=== PATIENT | female | born 1950 | race Two or more races ===

== ENCOUNTER → 2019-10-10 | Outpatient (CLI) | payer MEDICARE, MEDICAID ==
[~2019-10-10] MED LIST: IBUPROFEN600 MG ORAL; LIDODERM700 M1 TOPIC; NORCO 5-325 TA1 EAC1 ORAL; ROBAXIN-750750 MG PO
--- NOTE | 2019-10-10 13:59 | Diagnostic Imaging Report ---
Indication: Chronic right wrist pain Technique: Noncontrast spiral acquisitions obtained through the right wrist. Multiplanar reconstructions were generated. Total dose length product 55 mGycm. CTDIvol(s) 3 mGy. Radiation dose was minimized using automated exposure control Comparison: none Findings: No acute fractures. No dislocations. The joint spaces are preserved. No definite joint effusion. No significant soft tissue abnormality Impression: Negative for acute bony trauma Note that CT is limited in evaluation of possible internal derangements. If there is high clinical suspicion for such, MRI should be considered if not contraindicated The CT scanner at [facility] is accredited by the [employer] and the scans are performed using protocols designed to limit radiation exposure to as low as reasonably achievable to attain images of sufficient resolution adequate for diagnostic evaluation.
== END | disposition home or self-care (01) ==
LOC: RAD 09:39
DX: M25.531 Pain in right wrist (principal); G89.29 Other chronic pain

== ENCOUNTER 2019-10-20 18:04 | Emergency (ER) | payer MEDICARE, MEDICAID ==
[~2019-10-20] VITALS: Ht 157.5 cm; Wt 90.7 kg
--- NOTE | 2019-10-20 18:24 | Emergency Room Report ---
History of Present Illness General Chief Complaint: Lower Extremity Injury Present Illness HPI 68-year-old female with history of hyperlipidemia currently taking statins and denies any other past medical history here complaining of 1 week of left-sided leg pain mainly concentrated in the left knee and worsening pain today. Reports that the pain is 10 out of 10, feeling heavy and that time cannot bear pressure. Reports that the pain is worse when she is sitting for prolonged time or driving. Reports that she took 3 Tylenol today however does not feel any improvement. Denies chest pain, shortness of breath, headache and dizziness. Denies tingling and numbness. Denies tobacco smoke, marijuana use, alcohol intake. Denies any cardiac history. Denies unilateral weakness, patient is neurovascularly intact. No calf tenderness noted. Allergies: Coded Allergies: No Known Allergies (Unverified , 04/25/19) COVID-19 Screening Contact w/high risk pt: No Recent Travel to affected area: No Experienced COVID-19 symptoms?: No COVID-19 Testing performed NETWORK SECURITY ENGINEER: No Patient History Past Medical History: see triage record Past Surgical History: none Pertinent Family History: none Now: No Immunizations: UTD Reviewed Nursing Documentation: PMH: Agreed; PSxH: Agreed Nursing Documentation-PMH Hx Cardiac Problems: No - HYPERLIPIDEMIA Hx Hypertension: No Hx Pacemaker: No Hx Asthma: No Hx COPD: No Hx Diabetes: No Hx Cancer: No Hx Gastrointestinal Problems: No Hx Dialysis: No Hx Neurological Problems: No Hx Cerebrovascular Accident: No Hx Seizures: No Review of Systems All Other Systems: negative except mentioned in HPI Physical Exam Vital Signs Date Time Temp Pulse Resp B/P (MAP) Pulse Ox O2 Delivery O2 Flow Rate FiO2 10/20/19 18:13 98.2 72 20 140/64 (89) 97 Room Air Sp02 EP Interpretation: reviewed, normal General Appearance: no apparent distress, alert, GCS 15, non-toxic Head: normocephalic, atraumatic Eyes: bilateral eye normal inspection, bilateral eye PERRL ENT: hearing grossly normal, normal pharynx, no angioedema, normal voice Neck: full range of motion, supple, thyroid normal, no meningismus, no bony tend, supple/symm/no masses Respiratory: chest non-tender, lungs clear, normal breath sounds, no rhonchi, no wheezing, speaking full sentences Cardiovascular #1: regular rate, rhythm, no edema, no murmur Cardiovascular #2: 2+ dorsalis pedis (R), 2+ dorsalis pedis (L) Gastrointestinal: non tender, soft Genitourinary: no CVA tenderness Musculoskeletal: back normal, digits/nails normal, no calf tenderness, pelvis stable, non-tender Neurologic: alert, motor strength/tone normal, oriented x3, sensory intact, responsive, speech normal Psychiatric: judgement/insight normal, memory normal, mood/affect normal, no suicidal/homicidal ideation Skin: no rash Lymphatic: no adenopathy Medical Decision Making PA Attestation All diagnoses and treatment plans were reviewed and discussed with my supervising physician Dr. Greenberg Diagnostic Impression: Primary Impression: Arthritis of knee ER Course 68-year-old female with history of hyperlipidemia currently taking statins and denies any other past medical history here complaining of 1 week of left-sided leg pain mainly concentrated in the left knee and worsening pain today. Reports that the pain is 10 out of 10, feeling heavy and that time cannot bear pressure. Reports that the pain is worse when she is sitting for prolonged time or driving. Reports that she took 3 Tylenol today however does not feel any improvement. Denies chest pain, shortness of breath, headache and dizziness. Denies tingling and numbness. Denies tobacco smoke, marijuana use, alcohol intake. Denies any cardiac history. Denies unilateral weakness, patient is neurovascularly intact. No calf tenderness noted. Ddx considered but are not limited to : Cellulitis, DVT, superficial infection, abscess Vital signs: are WNL, pt. is afebrile H&PE are most consistent with:knee arthritis ORDERS: CBC, CMP, UA, BNP, troponin, d-dimer, venous duplex ultrasound, PT and PTT, knee x-ray, motrin, voltaren gel ED INTERVENTIONS: Toradol DISCHARGE: At this time pt. is stable for d/c to home. Will provide printed patient care instructions, and any necessary prescriptions. Care plan and follow up instructions have been discussed with the patient prior to discharge. Take medication as directed, follow-up with your primary care provider, if worsening symptoms return to the emergency room Chest X-Ray Diagnostic Results Chest X-Ray Diagnostic Results : Chest X-Ray Ordered: Yes # of Views/Limited/Complete: 1 View Indication: Other EP Interpretation: Yes SINDY Xray: Interpretation reviewed, by supervising MD, and agrees with findings. Interpretation: no consolidation, no effusion, no pneumothorax, no acute cardiopulmonary disease Impression: No acute disease Electronically Signed by: Ghassan Estevez PA-C Other X-Ray Diagnostic Results Other X-Ray Diagnostic Results : X-Ray ordered: Left knee # of Views/Limited Vs Complete: 3 View Indication: Pain EP Interpretation: Yes PA Xray: Interpretation reviewed, by supervising MD, and agrees with findings. Interpretation: no dislocation, no soft tissue swelling, no fractures Impression: No acute disease Electronically Signed by: Ghassan Estevez PA-C CT/MRI/US Diagnostic Results CT/MRI/US Diagnostic Results : Imaging Test Ordered: Venous duplex ultrasound left lower extremity Impression Negative DVT Last Vital Signs Date Time Temp Pulse Resp B/P (MAP) Pulse Ox O2 Delivery O2 Flow Rate FiO2 10/20/19 18:13 98.2 72 20 140/64 (89) 97 Room Air Disposition: HOME, SELF-CARE Condition: Stable Patient Instructions: Arthritis, [id number] Additional Instructions: Take medication as directed, follow-up with your primary care provider, if worsening symptoms return to the emergency room also this could be a vascular issue to be referred to your primary doctor for further evaluation. Ghassan Rowland Oct 20, 2019 18:24
[2019-10-20] MEDS ORDERED: Ketorolac 30mg Inj IV ONE (18:30)
[2019-10-20 18:50] LABS: BASOPHILS % (AUTO) 0.8 % (0.0-2.0); EOSINOPHILS % (AUTO) 1.2 % (0.0-3.0); HEMATOCRIT 39.8 % (37.0-47.0); HEMOGLOBIN 13.7 G/DL (12.0-16.0); LYMPHOCYTES % (AUTO) 25.4 % (20.0-45.0); MEAN CORPUSCULAR VOLUME 96 FL (80-99); NEUTROPHILS % (AUTO) 63.7 % (45.0-75.0); PLATELET COUNT 270 K/UL (150-450); RED BLOOD COUNT 4.13 M/UL (4.20-5.40); WHITE BLOOD COUNT 9.4 K/UL (4.8-10.8)
[2019-10-20 18:55] LABS: ANION GAP 9 mmol/L (5-15); BLOOD UREA NITROGEN 18 mg/dL (7-18); CALCIUM 9.3 MG/DL (8.5-10.1); CARBON DIOXIDE 26 MMOL/L (21-32); CHLORIDE 105 MMOL/L (98-107); CREATININE 1.1 MG/DL (0.55-1.30); POTASSIUM 4.2 MMOL/L (3.5-5.1); SODIUM 140 MMOL/L (136-145)
[2019-10-20 19:01] LABS: INR 0.9 (0.9-1.1)
[2019-10-20 19:06] LABS: ALANINE AMINOTRANSFERASE 35 U/L (12-78); ALBUMIN 3.7 G/DL (3.4-5.0); ALBUMIN/GLOBULIN RATIO 1.1 (1.0-2.7); ALKALINE PHOSPHATASE 79 U/L (46-116); ASPARTATE AMINO TRANSFERASE 21 U/L (15-37)
[2019-10-20 19:10] VITALS: BP 132/56
[2019-10-20] MEDS ORDERED: IBUPROFEN600 M1 ORAL (19:15)
[2019-10-20] MEDS ORDERED: VOLTAREN100 G1 TP (19:15)
[2019-10-20] MEDS ORDERED: GABAPENTIN100 MG ORAL (19:24)
[2019-10-20 19:35] VITALS: BP 129/66
--- NOTE | 2019-10-21 09:04 | Diagnostic Imaging Report ---
Indication: Chest pain Technique: One view of the chest Comparison: none Findings: Lungs and pleural spaces are clear. The heart size is normal. Impression: Negative
--- NOTE | 2019-10-21 09:04 | Diagnostic Imaging Report ---
Indication: Left knee pain Technique: 3 views of the left knee Comparison: None Findings: No suprapatellar effusion. No acute fractures. There are traction osteophytes at the superior pole of the patella. There is medial compartment degenerative joint space narrowing and an osteophyte. No dislocations. Impression: Degenerative changes. No acute bony trauma
--- NOTE | 2019-10-21 09:06 | Diagnostic Imaging Report ---
Indication: Left leg pain Technique: Grayscale and duplex images of the left lower extremity veins Comparison: None Findings: On the left, grayscale and duplex images demonstrate no evidence of intraluminal thrombus. Normal phasic Doppler waveforms, demonstrating normal augmentation response and no evidence of valvular insufficiency. Greater saphenous vein(s) and tibial veins are patent. Normal compressibility. Impression: Negative for evidence of lower extremity deep venous thrombosis on the left
== END 2019-10-20 19:35 | disposition home or self-care (01) ==
LOC: EMR 18:30
DX: M17.12 Unilateral primary osteoarthritis, left knee (principal); E78.5 Hyperlipidemia, unspecified; R07.9 Chest pain, unspecified; M79.605 Pain in left leg
CPT/HCPCS: 36415; 71045; 73562; 80053; 83880; 84484; 85025; 85379; 85610; 85730; 93971; 96374; 99284; J1885

== ENCOUNTER 2019-10-27 18:06 | Emergency (ER) | payer MEDICARE, MEDICAID ==
[~2019-10-27] VITALS: Ht 157.5 cm; Wt 90.7 kg
[~2019-10-27 18:06] MED LIST changes: +GABAPENTIN100 MG ORAL; +IBUPROFEN600 M1 ORAL; +VOLTAREN100 G1 TP
[2019-10-27] MEDS ORDERED: IBUPROFEN600 M1 ORAL (18:29)
[2019-10-27] MEDS ORDERED: LIDODERM700 M1 TOPIC (18:29)
--- NOTE | 2019-10-27 18:29 | Emergency Room Report ---
History of Present Illness General Chief Complaint: Lower Extremity Injury Source: Patient Present Illness HPI 68-year-old female presents with recurrent left knee pain that has been continuous since 2 weeks ago patient with a negative x-ray patient was diagnosed with arthritis, patient endorses achy pain aggravated with movement alleviated throughout severity is moderate, intermittent, patient denies any trauma to the region patient states that she continues to have the same pain patient states she has not had a chance to follow-up with hospital product specialist nor her primary care doctor patient presents for evaluation Allergies: Coded Allergies: No Known Allergies (Unverified , 04/25/19) COVID-19 Screening Contact w/high risk pt: No Recent Travel to affected area: No Experienced COVID-19 symptoms?: No COVID-19 Testing performed MANAGER BEHAVIOR: No Patient History Past Medical History: see triage record Now: No Reviewed Nursing Documentation: PMH: Agreed; PSxH: Agreed Nursing Documentation-PMH Past Medical History: No History, Except For Hx Cardiac Problems: No - HYPERLIPIDEMIA Hx Hypertension: No Hx Pacemaker: No Hx Asthma: No Hx COPD: No Hx Diabetes: No Hx Cancer: No Hx Gastrointestinal Problems: No Hx Dialysis: No Hx Neurological Problems: No Hx Cerebrovascular Accident: No Hx Seizures: No Review of Systems All Other Systems: negative except mentioned in HPI Physical Exam Vital Signs Date Time Temp Pulse Resp B/P (MAP) Pulse Ox O2 Delivery O2 Flow Rate FiO2 10/27/19 18:12 98.2 69 20 99/65 (76) 96 Room Air General Appearance: well appearing, no apparent distress Head: normocephalic, atraumatic ENT: hearing grossly normal, normal voice Neck: full range of motion, supple Respiratory: no respiratory distress, speaking full sentences Musculoskeletal: gait/station normal, other - Left knee: 5 out of 5 knee flexion extension, gait intact, anterior posterior drawer negative, valgus varus negative, tenderness to palpation anterior aspect of the knee Neurologic: alert, normal gait Psychiatric: mood/affect normal Skin: no rash Medical Decision Making Diagnostic Impression: Primary Impression: Arthritis ER Course 68-year-old female presents with recurrent arthritis of the left knee, patient was counseled to lose weight as well as follow-up with a PCP doubt septic joint doubt trauma. No indications for repeat XR. Previous XR shows arthritis of the knee. Disposition home with return precautions patient given a shot of Toradol, Decadron, Tylenol, and lidocaine patch follow-up with PCP Last Vital Signs Date Time Temp Pulse Resp B/P (MAP) Pulse Ox O2 Delivery O2 Flow Rate FiO2 10/27/19 18:12 98.2 69 20 99/65 (76) 96 Room Air Disposition: HOME, SELF-CARE Condition: Stable Scripts Lidocaine Patch* (Lidoderm Patch*) 1 Each Adh..patch 1 PATCH TOPIC DAILY, #7 PATCH 0 Refills Patch(es) may remain in place for up to 12 hours in any 24-hour period. Prov: Kaushik Herman MD 10/27/19 Ibuprofen* (MOTRIN*) 600 Mg Tablet 600 MG ORAL Q6H PRN for For Pain, #30 TAB 0 Refills Prov: Kaushik Herman MD 10/27/19 Referrals: Gideon Martinez MD (PCP) [facility] Patient Instructions: Arthritis, [id number] Additional Instructions: The patient was provided with discharge instructions, notified to follow-up with a primary care doctor and or specialist in the next 24-48 hours, and to return to the ED if they have worsening of their symptoms. Please note that this report is being documented using [employer] technology. This can lead to erroneous entry secondary to incorrect interpretation by the dictating instrument. Kaushik Herman MD Oct 27, 2019 18:29
[2019-10-27] MEDS ORDERED: Ketorolac 30mg Inj IM ONE (18:30)
[2019-10-27] MEDS ORDERED: Acetaminophen 500mg (ES) tab ORAL ONE (18:30)
[2019-10-27] MEDS ORDERED: Methocarbamol 500mg tab ORAL ONE (18:30)
[2019-10-27 18:39] VITALS: BP 115/74
== END 2019-10-27 18:38 | disposition home or self-care (01) ==
LOC: EMR 18:22
DX: M17.12 Unilateral primary osteoarthritis, left knee (principal); E78.5 Hyperlipidemia, unspecified
CPT/HCPCS: 96372; 99283; J1100; J1885

== ENCOUNTER 2019-10-30 13:41 | Inpatient (IN) | payer MEDICARE, MEDICAID ==
[~2019-10-30] VITALS: Ht 160 cm; Wt 80.7 kg
[2019-10-30] MEDS ORDERED: LORazepam 1mg tab ORAL PRN (15:15)
--- NOTE | 2019-10-30 15:15 | NUR ---
NURSE NOTES: PT IS DIRECT ADMIT FROM HOME. PT WAS ORIENTED TO ROOM. SISTER BELA AT BEDSIDE. PER PT, SHE WOULD LIKE HER SISTER TO TRANSLATE. PT IS [place] SPEAKING ONLY. PT STATES PAIN 10/10 OF LEFT KNEE. AXOX4, DENIES SOB, FEVER, OR CONTACT WITH PERSONS POSITIVE FOR COVID. BELONGINGS CHECKED AT BEDSIDE. SISTER BELA WILL TAKE WALLET THAT CONTAINS CREDIT CARD, ID, AND SOCIAL SECURITY CARD HOME. ALSO TOOK RING HOME. IV ACCESS INSERTED ON LEFT FA G22. RN SPOKE TO DR DODD AND RECEIVED ADMISSION ORDERS. PT'S SKIN IS INTACT. PT EDUCATED ON FALL PRECAUTIONS AND HOW TO USE CALL LIGHT FOR ASSISTANCE. PT VERBALIZED UNDERSTANDING. WILL CONTINUE TO MONITOR.
[2019-10-30] MEDS: HYDROcodone/Acetamin 5/325 tab ORAL PRN (15:53)
--- NOTE | 2019-10-30 16:00 | NUR ---
NURSE NOTES: PT BACK ON UNIT FROM MRS LEFT KNEE AND LEFT HIP. PT IS IN BED, EATING DINNER. PT STATES PAIN IS MINIMAL WHEN LYING IN BED/NOT MOVING. IN NO APPARENT DISTRESS AT THIS TIME. BED IN LOWEST POSITION WITH BEDSIDE RAILS X2 RAISED. CALL LIGHT WITHIN REACH. WILL CONTINUE TO MONITOR.
--- NOTE | 2019-10-30 17:53 | Diagnostic Imaging Report ---
EXAM: MR Left Lower Extremity Without Intravenous Contrast, Knee CLINICAL HISTORY: PAIN TECHNIQUE: Multiplanar magnetic resonance images of the left knee without intravenous contrast. COMPARISON: 10/20/2019 x-rays. FINDINGS: BONES/JOINTS/CARTILAGE: Patellofemoral compartment: Small knee joint effusion. Femorotibial compartments: Medial tibial plateau mild edema which may be chronic, degenerative, versus stress fracture. Moderate tricompartmental degenerative changes, most significant in the medial compartment. Full-thickness chondromalacia of the medial femoral condyle. Extensor mechanism: Unremarkable. Medial meniscus: Degeneration versus nondisplaced complex tear of the body of the medial meniscus. Lateral meniscus: Unremarkable. No tear. Medial capsule/supporting structures: Unremarkable. Normal medial collateral ligament. Lateral capsule/supporting structures: Unremarkable. Normal lateral collateral ligament. Anterior cruciate ligament: Unremarkable. Posterior cruciate ligament: Unremarkable. Musculature: Unremarkable. Soft tissues: Anterior subcutaneous edema. IMPRESSION: 1. Medial tibial plateau mild edema which may be chronic, degenerative, versus stress fracture. 2. Moderate tricompartmental degenerative changes, most significant in the medial compartment. 3. Degeneration versus nondisplaced complex tear of the body of the medial meniscus. 4. Small knee joint effusion.
--- NOTE | 2019-10-30 18:14 | NUR ---
HAND-OFF: Report given to LOR ENRIQUEZ RN.
--- NOTE | 2019-10-30 18:36 | Diagnostic Imaging Report ---
EXAM: MR Left Lower Extremity Without Intravenous Contrast, Hip CLINICAL HISTORY: PAIN TECHNIQUE: Multiplanar magnetic resonance images of the left hip without intravenous contrast. COMPARISON: No relevant prior studies available. FINDINGS: TENDONS: Flexors: Unremarkable. Extensors/Hamstring: Unremarkable. Abductors: Unremarkable. Adductors: Unremarkable. Rotators: Unremarkable. Muscles: Unremarkable. Fluid: Unremarkable. No joint effusion. Labrum: Unremarkable. Cartilage: Unremarkable. Bones/joints: Unremarkable. No acute fracture. No dislocation. IMPRESSION: No acute fracture.
[2019-10-30 19:28] LABS: EOSINOPHILS % (AUTO) 3.4 % (0.0-3.0); HEMATOCRIT 37.8 % (37.0-47.0); LYMPHOCYTES % (AUTO) 36.9 % (20.0-45.0); MEAN CORPUSCULAR VOLUME 98 FL (80-99); MONOCYTES % (AUTO) 7.7 % (1.0-10.0); PLATELET COUNT 266 K/UL (150-450); RED BLOOD COUNT 3.87 M/UL (4.20-5.40); RED CELL DISTRIBUTION WIDTH 12.1 % (11.6-14.8); WHITE BLOOD COUNT 10.3 K/UL (4.8-10.8)
--- NOTE | 2019-10-30 19:33 | NUR ---
NURSE NOTES: Report received from Adan RN. Patient AxOx4, Nauruan Speaking, not in pain or distress. MRI of left knee and hip done. PIV intact. BEd low and locked, siderails up x2, instructed to call nurse for assistance.
--- NOTE | 2019-10-30 19:34 | NUR ---
HAND-OFF: Report given to Jaqueline MEZA.
[2019-10-30 19:53] LABS: ALANINE AMINOTRANSFERASE 29 U/L (12-78); ALBUMIN 3.5 G/DL (3.4-5.0); ALBUMIN/GLOBULIN RATIO 1.1 (1.0-2.7); ALKALINE PHOSPHATASE 67 U/L (46-116); ANION GAP 10 mmol/L (5-15); ASPARTATE AMINO TRANSFERASE 16 U/L (15-37); BILIRUBIN,TOTAL 0.9 MG/DL (0.2-1.0); BLOOD UREA NITROGEN 21 mg/dL (7-18); CALCIUM 9.1 MG/DL (8.5-10.1); CARBON DIOXIDE 26 MMOL/L (21-32); CHLORIDE 102 MMOL/L (98-107); CREATININE 1.1 MG/DL (0.55-1.30); POTASSIUM 3.8 MMOL/L (3.5-5.1); SODIUM 137 MMOL/L (136-145)
[2019-10-30 20:03] VITALS: BP 117/61
--- NOTE | 2019-10-30 20:08 | NUR ---
NURSE NOTES: Received patient awake, alert, verbal, resting in bed comfortably without complaints.
[2019-10-30] MEDS: Heparin 5000 units/ml inj SUBQ SCH (21:08)
[2019-10-30 23:56] VITALS: BP 125/64
[2019-10-31 04:00] VITALS: BP 126/70
--- NOTE | 2019-10-31 05:00 | Consultation ---
DATE OF CONSULTATION: 10/30/2019 CARDIOLOGY CONSULTATION REASON FOR CONSULTATION: Preoperative cardiovascular evaluation. HISTORY OF PRESENT ILLNESS: This is a 68-year-old female with osteoarthritis developed worsening pain of her left knee and has been unable to ambulate despite outpatient interventions and therapies by Dr. Martinez. She was admitted to the hospital for evaluation. She is noted to have a possible fracture of the knee as well as a torn ligament. Orthopedic surgical intervention is being considered. I have been asked to address cardiovascular status for possible general anesthesia. PAST MEDICAL HISTORY: Hypertensive heart disease, type 2 diabetes mellitus, hyperlipidemia, osteoarthritis, degenerative aortic valve disease with no significant stenosis, pernicious anemia with B12 deficiency, history of bilateral rotator cuff tears, vitamin D deficiency, insomnia, and depression. ALLERGIES: None. FAMILY HISTORY: Noncontributory. SOCIAL HISTORY: She lost her son in an accident several years ago. There is no history of smoking, alcohol, or substance abuse. REVIEW OF SYSTEMS: An outpatient echocardiogram revealed normal ejection fraction, mild concentric hypertrophy, and mild degenerative valve disease. There is no history of myocardial infarction or irregular heartbeats. She has done an outpatient echocardiogram last year that was negative for exercise-induced ischemia or wall motion abnormalities. There is no history of abnormal blood clotting or DVT. Her diabetes has worsened over the past year. Her A1c is now above 8. She is presently not on anti-lipid therapy. She does have a history of borderline TSH elevation. There is no history of seizure or stroke. There is no history of asthma. There is no history of visual disturbance or retinopathy. PHYSICAL EXAMINATION: VITAL SIGNS: Blood pressure 117/61, pulse 75, respirations 20, afebrile, and room air oxygen sat 97%. HEENT: Conjunctivae pink. Oropharynx clear. NECK: Supple. No bruits. Jugular venous pressure normal. No tracheal deviation. No thyroid nodules. LUNGS: Clear. CARDIAC: Regular rhythm and rate. Normal S1, S2 with a 1/6 systolic murmur at base. ABDOMEN: Soft and nontender. No bruits. EXTREMITIES: No edema. Left knee with some small effusion and tenderness. IMPRESSION: 1. Possible left knee fracture and ligament tear. 2. Osteoarthritis. 3. Hypertension, controlled. 4. Degenerative aortic valve disease of no clinical significance. 5. Tenacious anemia with B12 deficiency. 6. Vitamin D deficiency. 7. Type 2 diabetes mellitus with elevated glucose and A1c. 8. Borderline thyroid insufficiency. PLAN: 1. Pain control. 2. Await orthopedic input. 3. DVT prophylaxis. 4. Consider FLAVIO inhibitor if blood pressure parameters increase. 5. Add metformin. 6. Glucose monitoring. 7. Arterial duplex 8. Stable from cardiovascular standpoint for general anesthesia and orthopedic surgery. Isidro Rascon M.D. DR: JONAH JOB#: [id number] CC: LEVAR
--- NOTE | 2019-10-31 07:14 | NUR ---
HAND-OFF: Report given to Kamlseh Madrid RN/ Batool Washington RN.
--- NOTE | 2019-10-31 07:15 | NUR ---
NURSE NOTES: Received report from DERRICK Parsons. Patient observed in high fowlers position in bed alert, awake, and oriented x4. Estonian speaking. No s/sx of SOB/Distress, no c/o any pain or gi/gu discomfort verbalized. IV site located on LFA gauge 22 asymptomatic, inplace, intact and patent. Bed placed on lowest and locked position. Call light placed within reach and will continue to monitor.
[2019-10-31 08:00] VITALS: BP 112/67
[2019-10-31] MEDS: Vitamin D 1000 IU Tab ORAL SCH (08:19)
[2019-10-31] MEDS: Heparin 5000 units/ml inj SUBQ SCH ×2 (08:20→22:04)
[2019-10-31] MEDS: HYDROcodone/Acetamin 5/325 tab ORAL PRN (08:42)
--- NOTE | 2019-10-31 09:00 | History and Physical Report ---
DATE OF ADMISSION: 10/30/2019 CHIEF COMPLAINT: Pain and swelling in the legs. HISTORY OF PRESENT ILLNESS: The patient is a 68-year-old female, well known to me. She has a history of hypertension and hyperlipidemia. She has a history of bilateral rotator cuff tears as well as a prior history of an optic nerve tumor. She presented to the office with complaints of severe pain in the left lower extremity as well as swelling. According to the patient, she has had no trauma or change in activity, but she was unable to ambulate in my office. She had intractable pain that cannot be controlled. She was therefore admitted for further evaluation and care. PAST MEDICAL HISTORY: As above. History of diabetes. PAST SURGICAL HISTORY: None. CURRENT MEDICATIONS: Reconciled and reviewed. ALLERGIES: None. FAMILY HISTORY: None. SOCIAL HISTORY: Negative for tobacco, ethanol, or drugs. REVIEW OF SYSTEMS: GENERAL: No fevers or chills. HEENT: No headaches or visual changes. CARDIOPULMONARY: No chest pain or shortness of breath. GASTROINTESTINAL: No nausea or vomiting. GENITOURINARY: No urgency or frequency. MUSCULOSKELETAL: Positive left leg pain and swelling. NEUROLOGIC: No evidence of seizures. PHYSICAL EXAMINATION: VITAL SIGNS: Temperature is 97.4, pulse 80, respirations 20, and blood pressure 126/70. GENERAL: The patient is well developed, in no apparent distress. HEART: Regular rate and rhythm. LUNGS: Clear. ABDOMEN: Soft, nontender, and nondistended. EXTREMITIES: Without clubbing, cyanosis, or edema. The patient has exquisite tenderness in the left leg, essentially involving the whole leg, but appears to be more focused in the knee and upper hip area. There is noted to be 1+ edema noted. LABORATORY DATA: Labs are pending. ASSESSMENT: This is a pleasant female with a history of hypertension, diabetes, and history of optic nerve tumor, admitted with complaints of severe left leg pain and swelling of unclear etiology. PLAN: 1. MRI to rule out fracture or possible tendon or meniscal injury in the knee and hip. 2. Check a venous and arterial duplex of the lower extremities. 3. Cardiology consultation and orthopedic consultation will be obtained. Gideon Martinez M.D. DR: JOSE JOB#: [id number] CC:
--- NOTE | 2019-10-31 09:25 | NUR ---
PT EVALUATION NOTE Patient seen for initial evaluation. Patient presents with pain L knee which impairs patient's ability to perform mobility tasks safely. Patient to have ortho consult/MRI to rule out fracture or possible tendon or meniscal injury in the knee and hip. Patient instructed in NWB LLE until seen by ortho. Patient able to transfer with SBA/CGA and FWW and transfer to bedside commode. Gait training deferred until seen for ortho consult. Patient will benefit from skilled inpatient PT intervention to increase strength and balance for improved level of functional mobility and safety. Will progress with gait training and stair training after patient seen by ortho. Anticipate discharge home once medically cleared by MD. May need FWW for ambulation depending on WB status and patient progress. Addendum: 10/31/19 at 1010 by GAUDENCIO MERCADO PT Amended: Links added.
[2019-10-31] MEDS: metFORMIN 500mg tab ORAL SCH (11:15)
[2019-10-31 12:00] VITALS: BP 136/76
--- NOTE | 2019-10-31 12:37 | Cardiology Progress Note ---
Subjective DATE OF SERVICE: Oct 31, 2019 Still has pain. MRI suggests left knee fx A1c is 8.2; metformin added yesterday. BP range remains stable. Objective Last 24 Hour Vital Signs Date Time Temp Pulse Resp B/P (MAP) Pulse Ox O2 Delivery O2 Flow Rate FiO2 10/31/19 09:00 Room Air 10/31/19 08:00 97.2 82 18 112/67 (82) 98 10/31/19 04:00 97.2 64 19 126/70 (88) 96 10/30/19 23:56 97.4 80 20 125/64 (84) 98 10/30/19 20:21 Room Air 10/30/19 20:03 97.7 75 20 117/61 (79) 97 10/30/19 17:14 Room Air HEENT: normal ENT inspection LUNGS: lungs clear bilaterally CARDIAC: normal rate, regular rhythm, normal S1 and S2, normal peripheral pulses ABDOMEN: normal bowel sounds, non tender, soft EXTREMITIES: no calf tenderness, other - Effusion of left knee with associated pain. Laboratory Tests Test 10/30/19 18:30 White Blood Count 10.3 K/UL (4.8-10.8) Red Blood Count 3.87 M/UL (4.20-5.40) L Hemoglobin 13.0 G/DL (12.0-16.0) Hematocrit 37.8 % (37.0-47.0) Mean Corpuscular Volume 98 FL (80-99) Mean Corpuscular Hemoglobin 33.7 PG (27.0-31.0) H Mean Corpuscular Hemoglobin Concent 34.5 G/DL (32.0-36.0) Red Cell Distribution Width 12.1 % (11.6-14.8) Platelet Count 266 K/UL (150-450) Mean Platelet Volume 7.2 FL (6.5-10.1) Neutrophils (%) (Auto) 51.0 % (45.0-75.0) Lymphocytes (%) (Auto) 36.9 % (20.0-45.0) Monocytes (%) (Auto) 7.7 % (1.0-10.0) Eosinophils (%) (Auto) 3.4 % (0.0-3.0) H Basophils (%) (Auto) 1.0 % (0.0-2.0) Sodium Level 137 MMOL/L (136-145) Potassium Level 3.8 MMOL/L (3.5-5.1) Chloride Level 102 MMOL/L (98-107) Carbon Dioxide Level 26 MMOL/L (21-32) Anion Gap 10 mmol/L (5-15) Blood Urea Nitrogen 21 mg/dL (7-18) H Creatinine 1.1 MG/DL (0.55-1.30) Estimat Glomerular Filtration Rate 49.4 mL/min (>60) Glucose Level 247 MG/DL (74-106) H Hemoglobin A1c 8.2 % (4.3-6.0) H Calcium Level 9.1 MG/DL (8.5-10.1) Total Bilirubin 0.9 MG/DL (0.2-1.0) Aspartate Amino Transf (AST/SGOT) 16 U/L (15-37) Alanine Aminotransferase (ALT/SGPT) 29 U/L (12-78) Alkaline Phosphatase 67 U/L (46-116) Total Protein 6.7 G/DL (6.4-8.2) Albumin 3.5 G/DL (3.4-5.0) Globulin 3.2 g/dL Albumin/Globulin Ratio 1.1 (1.0-2.7) Thyroid Stimulating Hormone (TSH) 4.782 uiU/mL (0.358-3.740) Assessment/Plan Assessment/Plan Left knee fx and tendon disruption Hypertension/HHD Pernicious anemia with B12 def Vit D def NIDDM Dyslipidemia Possible hypothyroidism Insomnia Depression Plan as outlined 10/29. Ortho noted D/W Dr Martinez Stable for general anesthesia from CV standpoint Isidro Rascon MD Oct 31, 2019 12:37
--- NOTE | 2019-10-31 12:44 | NUR ---
SUBMERSIBLE PILOT NOTE CM left a for Dr Martinze patient does not meet criteria for inpatient CM asked DM to review chart CM to f/u Addendum: 10/31/19 at 1252 by JOYCE PIERRE LVN Plan is for surgery eval and possible surgery Patient will meet inpatient criteria if surgery planned in 24hrs
--- NOTE | 2019-10-31 13:08 | NUR ---
CASE MANAGEMENT:INITIAL REVIEW 68 YR OLD MALE DIRECT ADMIT FROM MD OFFICE CC;INTRACTABLE LEFT LOWER EXTREMITY PAIN W/SWELLING SI;SEVERE LEFT LEG PAIN AND SWELLING OF UNCLEAR ETIOLOGY 97.7 80 20 126/64 96% ON RA BUN 21 BG 247 TSH 4782 KNEE MRI ~ 1. Medial tibial plateau mild edema which may be chronic, degenerative, versus stress fracture. 2. Moderate tricompartmental degenerative changes, most significant in the medial compartment. 3. Degeneration versus nondisplaced complex tear of the body of the medial meniscus. 4. Small knee joint effusion. LEFT HIP MRI ~ NO ACUTE FRACTURE IS;NORCO PO ATIVAN PO HEPARIN SUBQ TORADOL IV ADMITTED TO MED SURG MED SURG STATUS DCP;FROM HOME PLAN; POSSIBLE KNEE SURGERY TOMORROW
--- NOTE | 2019-10-31 14:40 | Diagnostic Imaging Report ---
EXAM: ULTRASOUND Venous Duplex Scan Alfonso Leg CLINICAL HISTORY: Leg pain and edema. COMPARISON: None TECHNIQUE: Doppler examination include grayscale images obtained with and without compression, and color and spectral doppler analysis. FINDINGS: Doppler examination shows normal spontaneity, phasicity, compressibility in the bilateral lower extremities. There is no thrombus identified by grayscale. Normal color and spectral flow is identified. There is no evidence of valvular incompetency or insufficiency. IMPRESSION: UNREMARKABLE VENOUS DUPLEX.
[2019-10-31] MEDS: Ketorolac 30mg Inj IV SCH ×2 (14:53→21:48)
[2019-10-31 16:00] VITALS: BP 119/72
--- NOTE | 2019-10-31 16:15 | Consultation ---
DATE OF CONSULTATION: 10/31/2019 HISTORY OF PRESENT ILLNESS: The patient is a pleasant 68-year-old female who presents with complaints of severe lower extremity swelling and pain. The patient was unable to ambulate, was brought to the emergency room, admitted for further care and recommendation. PAST MEDICAL HISTORY: Diabetes, hyperlipidemia, hypertension. PAST SURGICAL HISTORY: None listed. MEDICATION: Per intake chart. ALLERGIES: None. SOCIAL HISTORY: The patient does not smoke or drink. FAMILY HISTORY: Noncontributory. PHYSICAL EXAMINATION: GENERAL: The patient is resting comfortably in exam bed. EXTREMITIES: Left knee examination shows pain on medial joint line. A +1 pitting edema. IMAGING: MRI of the left knee shows some degenerative medial meniscus tear with chondral damage with secondary reactive bone edema. MRI of the hip is normal. ASSESSMENT: Left knee osteoarthritis. DISCUSSION: At this point what I recommend is nonsteroidals, cryotherapy. She will be weightbearing as tolerated. If she has significant pain, she may benefit from a cortisone injection. At this point, I recommend is trying a course of Toradol for the next 24 hours, then transition to oral NSAIDs. She can follow up as outpatient for consideration for total knee replacement. Lauro Muhammad M.D. DR: Cristiane JOB#: [id number] CC:
--- NOTE | 2019-10-31 17:39 | Diagnostic Imaging Report ---
Indication: Bilateral lower extremity pain Technique: Duplex Doppler imaging of the arteries of the bilateral lower extremities. Comparison: None Findings: Right: The right common femoral artery is patent with normal color flow. A normal triphasic waveform is identified. The profunda femoris artery is patent with a biphasic waveform and normal color flow. Imaged portions of the right superficial femoral artery are patent with normal color flow and triphasic waveforms. The right popliteal artery is patent with normal color flow and triphasic waveform. Imaged portions of the tibial vessels are patent with normal color flow and triphasic waveforms. The dorsalis pedis artery is patent with normal color flow and a triphasic waveform. No upper evidence to suggest significant stenosis. Left: The left common femoral arteries patent with normal color flow and triphasic waveform. Left profunda femoris artery is patent with normal color flow and a triphasic waveform. Imaged portions of the left superficial femoral artery are patent with normal color flow and triphasic waveforms. Left popliteal artery is patent with normal color flow and triphasic waveform. Imaged portions of the tibial vessels demonstrate patency with observed color flow and triphasic waveforms. The left dorsalis pedis artery is patent with normal color flow. IMPRESSION: Images arteries of the bilateral lower extremities are patent. No evidence of occlusion or definite Doppler evidence to suggest significant stenosis.
--- NOTE | 2019-10-31 19:26 | NUR ---
HAND-OFF: Report given to HANNA Ennis.
[2019-10-31 20:00] VITALS: BP 135/63
--- NOTE | 2019-10-31 20:00 | NUR ---
NURSE NOTES: RECEIVED PATIENT LYING IN BED, AWAKE, ALERT/ORIENTED X4, AUSTRALIAN SPEAKING, ABLE TO UNDERSTAND SIMPLE KYRGYZ, NO SIGNS AND SYMPTOMS OF ACUTE CARDIO RESPIRATORY DISTRESS/SHORTNESS OF BREATH, DENIES CHEST PAIN; PATIENT WITH COMPLAINTS OF PAIN TO MEDIAL ASPECT OF LEFT KNEE/ACHY, ENCOURAGED ELEVATION, TOLERATING WELL. IV INTACT TO LEFT FOREARM/GAUGE 22, SALINE LOCK, NO REDNESS/SWELLING NOTED TO SITE. DENIES GI DISCOMFORT, NO N/V/D. SIDE RAILS UP X2 FOR MOBILITY, BED IN LOWEST POSITION FOR SAFETY, ENCOURAGED PATIENT TO UTILIZE CALL LIGHT FOR ASSISTANCE. CONTINUE WITH CURRENT PLAN OF CARE. NAD.
[2019-11-01] VITALS: BP 120/68
[2019-11-01] MEDS: Ketorolac 30mg Inj IV SCH ×3 (03:36→15:23)
[2019-11-01 04:00] VITALS: BP 121/61
--- NOTE | 2019-11-01 06:03 | NUR ---
NURSE NOTES: RESTED WELL, NO SIGNIFICANT CHANGE OF CONDITION NOTED THROUGHOUT THE NIGHT. SAFETY MAINTAINED. NAD.
--- NOTE | 2019-11-01 06:15 | NUR ---
NURSE NOTES: LEFT MESSAGE ON MD VOICE MAIL REGARDING ADMISSION OBSERVATION STATUS-
--- NOTE | 2019-11-01 06:58 | NUR ---
HAND-OFF: Report given to DERRICK BUCKNER.
[2019-11-01 08:00] VITALS: BP 136/73
--- NOTE | 2019-11-01 08:11 | NUR ---
NURSE NOTES: Patient awake, alert x4; on room air, no sing of distress and shortness of breath; no sing of chest pain; Left Knee edematous; bed side Commode within reach; side rails up x2, breaks engaged, bed at lowest position; walker within reach; call light within reach; will keep monitoring.
[2019-11-01] MEDS: Vitamin D 1000 IU Tab ORAL SCH (08:40)
[2019-11-01] MEDS: Heparin 5000 units/ml inj SUBQ SCH (08:42)
[2019-11-01 12:00] VITALS: BP 141/61
[2019-11-01] MEDS ORDERED: TRAMADOL HCL50 MG ORAL (12:33)
[2019-11-01] MEDS: metFORMIN 500mg tab ORAL SCH (12:39)
[2019-11-01 16:00] VITALS: BP 133/64
--- NOTE | 2019-11-01 17:30 | NUR ---
NURSE NOTES: Patient discharged to Home; iV acces and name tag removed upon discharge; per PT recommendation, Walker provided to patient and left the floor by using walker accompanied by Timmy, aboriginal community council member; belonging lists singed by patient and discharging nurse; printed material given to patient; also Home discharging paper signed by patient, primary nurse and charge nurse Scott; patient stable upon discharge; patient said she communicated her discharge to home to family members; patient said she is gonna drive to home; patient stable upon discharge;
--- NOTE | 2019-11-02 20:32 | Cardiology Progress Note ---
Subjective DATE OF SERVICE: Nov 01, 2019 Still has pain. Ortho suggests NSAID's and cryotherapy; TKR in near future. A1c is 8.2; metformin added 10/29. BP range remains stable. Objective HEENT: normal ENT inspection LUNGS: lungs clear bilaterally CARDIAC: normal rate, regular rhythm, normal S1 and S2, normal peripheral pulses ABDOMEN: normal bowel sounds, non tender, soft EXTREMITIES: no calf tenderness, other - Effusion of left knee with associated pain. Assessment/Plan Assessment/Plan Left knee fx and tendon disruption Hypertension/HHD Pernicious anemia with B12 def Vit D def NIDDM Dyslipidemia Possible hypothyroidism Insomnia Depression Plan: Ortho noted D/W Dr Martinez Outpatient follow-up (late entry) Isidro Rascon MD Nov 02, 2019 20:32
--- NOTE | 2019-11-03 16:15 | Discharge Summary ---
DATE OF ADMISSION: 10/30/2019 DATE OF DISCHARGE: 11/01/2019 ADMISSION DIAGNOSES: 1. Left knee pain, intractable pain, inability to . 2. History of optic nerve tumor. 3. Hypertension. 4. Possible CHF exacerbation. 5. Diabetes. DISCHARGE DIAGNOSES: 1. Left knee pain, intractable pain, inability to . 2. History of optic nerve tumor. 3. Hypertension. 4. Possible CHF exacerbation. 5. Diabetes. HOSPITAL COURSE: The patient was admitted with complaints of severe left knee pain. She was unable to ambulate and pain. She was admitted. MRI showed meniscus tear and osteoarthritis. workup was recommended. The patient received IV and oral pain medications. The pain was better controlled and it is felt that she can be discharged home with home health . She will follow up with orthopedics is advanced and a likely needed. DISCHARGE MEDICATIONS: Please see discharge medication list for discharge medications. DIET: Cardiac diabetic diet. ACTIVITIES: Ad phillip. FOLLOWUP: The patient will follow up in one to two weeks in the office. Gideon Martinez M.D. DR: PRERNA JOB#: [id number] CC:
== END 2019-11-01 17:44 | disposition home or self-care (01) | DRG 563 ==
LOC: 4E 14:30
DX: S83.242A Other tear of medial meniscus, current injury, left knee, initial encounter (principal); X58.XXXA Exposure to other specified factors, initial encounter; M17.12 Unilateral primary osteoarthritis, left knee; E11.9 Type 2 diabetes mellitus without complications; Z85.848 Personal history of malignant neoplasm of other parts of nervous tissue; E78.5 Hyperlipidemia, unspecified; I11.0 Hypertensive heart disease with heart failure; E55.9 Vitamin D deficiency, unspecified; D51.8 Other vitamin B12 deficiency anemias; G47.00 Insomnia, unspecified; R26.2 Difficulty in walking, not elsewhere classified
CPT/HCPCS: 36415; 80053; 83036; 84443; 85025; 93925; 93970

== ENCOUNTER → 2020-01-08 | Outpatient (CLI) | payer MEDICARE, MEDICAID ==
[~2020-01-08] MED LIST changes: +TRAMADOL HCL50 MG ORAL
--- NOTE | 2020-01-08 16:39 | Diagnostic Imaging Report ---
EXAM: MRI MRI RT Wrist no Contrast TECHNIQUE: MR examination of the wrist include sagittal T1, coronal T1, STIR and 3-D gradient sequences as well as axial proton density and STIR sequences. CLINICAL HISTORY: Chronic wrist pain. COMPARISON: None FINDINGS: Study is technically limited due to motion artifact. There is also poor fat suppression failure on multiple sequences. There is marrow brightening identified at the radial styloid. No discrete fracture seen. Question focal bone bruise. No bony lesions or erosions identified. The radiocarpal joint is anatomic. Distal radial ulnar joint is also congruous. Alignment of the carpal rows is also anatomic. A small amount of fluid and minimal soft tissue stranding noted around the abductor pollicis longus tendon and extensor pollicis brevis tendon possibly mild tenosynovitis. The triangular fibrocartilage appears irregular and with abnormal signal likely representing underlying tear. Carpal tunnel space appears unremarkable. IMPRESSION: PROBABLE TEAR OF THE TRIANGULAR FIBROCARTILAGE. MARROW BRIGHTENING AT THE RADIAL STYLOID PERHAPS A SMALL BONE BRUISE OR REACTIVE EDEMA. SMALL AMOUNT OF FLUID AND INDURATION AROUND THE ABDUCTOR POLLICIS LONGUS TENDON AND EXTENSOR POLLICIS BREVIS TENDON PERHAPS MILD TENOSYNOVITIS.
== END | disposition home or self-care (01) ==
LOC: MRI 09:31
DX: M25.531 Pain in right wrist (principal); G89.29 Other chronic pain